=== PATIENT | female | born 1980 | race Caucasian/White ===

== ENCOUNTER 2017-05-13 09:38 | Emergency (ER) | payer OTHER ==
[~2017-05-13] VITALS: Ht 165.1 cm; Wt 56.7 kg
[~2017-05-13 09:38] MED LIST: CYMBALTA30 MG PO; LEVOTHYROXINE25 MCG PO; MULTIVITAMINS1 EAC7 PO; PERCOCET 7.5-31 EACH PO; PHENADOZ25 MG PR; PRENATAL MULTI1 EACH PO; PROCARDIA XL60 MG PO
[2017-05-13] MEDS ORDERED: SUDOGEST60 MG PO (09:53)
--- NOTE | 2017-05-13 22:35 | EKG ---
[facility] [address] [facility] [place], [place] [address] Signed Sinus bradycardia Possible Left atrial enlargement Anterior infarct , age undetermined Abnormal ECG No previous ECGs available Confirmed by TORRIE HOUGH MD ([id number]) on 05/13/2017 10:35:31 PM Electronically Signed By: TORRIE HOUGH MD 05/13/17 2235 PATIENT NAME: RAQUEL MENDEZ Electrocardiogram DATE OF : 80 PHYSICIAN: TORRIE HOUGH MD REPORT #: [id number] REPORT IS CONFIDENTIAL AND NOT TO BE RELEASED WITHOUT AUTHORIZATION
== END 2017-05-13 11:40 | disposition home or self-care (01) ==
LOC: ED 09:38
DX: R00.2 Palpitations (principal); Z79.899 Other long term (current) drug therapy
CPT/HCPCS: 80053; 84439; 84443; 84484; 85025; 93005; 93010; 99284

== ENCOUNTER 2019-01-13 16:06 | Emergency (ER) | payer OTHER ==
[~2019-01-13] VITALS: Ht 165.1 cm; Wt 61.2 kg
[~2019-01-13 16:06] MED LIST changes: +SUDOGEST60 MG PO
[2019-01-13] MEDS ORDERED: KARIVA 28 DAY1 EACH PO (16:21)
== END 2019-01-13 17:25 | disposition home or self-care (01) ==
LOC: ED 16:06
DX: R10.2 Pelvic and perineal pain (principal); G89.29 Other chronic pain
CPT/HCPCS: 96372; 99283-25; J1885; J2550

== ENCOUNTER 2019-02-14 07:50 | Day surgery (SDC) | payer OTHER ==
[~2019-02-14] VITALS: Ht 165.1 cm; Wt 61.2 kg
[~2019-02-14 07:50] MED LIST changes: +KARIVA 28 DAY1 EACH PO
[2019-02-14] MEDS ORDERED: WELLBUTRIN SR150 MG PO (08:07)
--- NOTE | 2019-02-14 09:23 | NUR ---
02/14/19 0923 Yuridia Payton SN 0916- PT ARRIVES TO PACU. 02 SAT HIGH 90'S ON 1 LITER VIA NC. RESPS EVEN AND UNLABORED. PT RESTING WITH EYES CLOSED. PT VERY DROWSY AT THIS TIME. REMOVED. PT TOLERATING WELL. RESPS EVEN AND UNLABORED. 02 SAT HIGH 90'S ON RA. PT DENIES PAIN, NAUSEA, AND DIZZINESS AT THIS TIME.
--- NOTE | 2019-02-16 10:55 | OR ---
[facility] [address], [place] [address] Signed DATE OF OPERATION: 02/14/2019 SURGEON: Eddie Marte MD DATE OF PROCEDURE: 02/14/2019 PREOPERATIVE DIAGNOSIS: Persistent pelvic pain, episodic diarrhea and constipation. POSTOPERATIVE DIAGNOSIS: Polyp of sigmoid, otherwise normal. PROCEDURE: Total colonoscopy to cecum with hot snare polypectomy x1. ANESTHESIA: Intravenous sedation, fentanyl 200 mcg and Versed 10 mg. INDICATION: This 38-year-old white woman is a patient Dr. Gutierrez and well known to me from the past. She has had a presumptive diagnosis of colitis in the past. She has had persistent pelvic pain and transvaginal ultrasound was normal. She is to undergo colonoscopy to assess for source of colonic pathology that may account for low pelvic pain and if negative, Dr. Gutierrez is anticipating laparoscopy. As regard to colonoscopy, the risks of bleeding, infection, perforation, and so forth were reviewed in detail. She understands and wished to proceed. FINDINGS: The prep was good. Complete colonoscopy was undertaken to the cecum. There was no lesion to account for pelvic pain. She did have a polyp at 20 cm, which was excised with hot snare polypectomy technique. PROCEDURE: The patient was brought to the endoscopy suite and placed in lateral decubitus position, given intravenous sedation to the point of slurred speech and nystagmus. Digital rectal examination was normal. Olympus video colonoscope was passed in the rectum and manipulated throughout the colon ultimately intubating the cecum. The scope was withdrawn from that point. Examination Electronically Signed By: EDDIE MARTE MD 02/16/19 1055 PATIENT NAME: RAQUEL GARDUNO OPERATIVE REPORT DATE OF : 80 REPORT #: [id number] PHYSICIAN: EDDIE MARTE MD PCP: NO PRIMARY CARE PHYSICIAN REPORT IS CONFIDENTIAL AND NOT TO BE RELEASED WITHOUT AUTHORIZATION [facility] [address] [place], [place] [address] Signed throughout undertaken showing no sign of abnormality until approximately 20 cm from the anal verge where a somewhat pedunculated polyp was noted, this was excised with hot snare polypectomy technique. Complete polypectomy was accomplished without problem. Further withdrawal of scope showed no other abnormality. Retroflexed view was normal. The scope was removed. The patient was taken to recovery room in good condition. CONCLUDING DIAGNOSIS: Polyps x1, not accounting for pelvic pain most likely. PLAN: She will return to the ongoing care of Dr. Gutierrez. Consideration will then be made for laparoscopy. MD NAINA Vazquez/ANISA /[id number] cc: Madison Gutierrez MD Copies: MADISON GUTIERREZ MD ~ Electronically Signed By: EDDIE MARTE MD 02/16/19 1055 PATIENT NAME: RAQUEL GARDUNO OPERATIVE REPORT DATE OF : 80 REPORT #: [id number] PHYSICIAN: EDDIE MARTE MD PCP: NO PRIMARY CARE PHYSICIAN REPORT IS CONFIDENTIAL AND NOT TO BE RELEASED WITHOUT AUTHORIZATION
== END 2019-02-14 10:05 | disposition home or self-care (01) ==
LOC: DS 07:50 → OPS 07:50 → DS 08:30 → OPS 10:05
PROVIDERS: Surgery
PROC: 0DBE8ZX Excision of Large Intestine, Via Natural or Artificial Opening Endoscopic, Diagnostic (ICD-10-PCS; principal; 2019-02-14 08:30)
DX: K51.40 Inflammatory polyps of colon without complications (principal); J45.909 Unspecified asthma, uncomplicated; Z79.899 Other long term (current) drug therapy; Z87.442 Personal history of urinary calculi
CPT/HCPCS: 84703; 99153; G0500; J2250; J3010; J7120

== ENCOUNTER 2019-10-12 09:15 | Day surgery (SDC) | payer OTHER ==
[~2019-10-12] VITALS: Ht 167.6 cm; Wt 68.0 kg
--- NOTE | ~2019-10-12 | OR ---
[facility] [address] [place], [place] [address] Draft DATE OF OPERATION: 10/12/2019 SURGEON: Madison Gutierrez MD PREOPERATIVE DIAGNOSES: Pelvic pain and menorrhagia. POSTOPERATIVE DIAGNOSES: Pelvic pain, menorrhagia, mild pelvic endometriosis. PROCEDURES: Laparoscopy with fulguration of endometriosis with cautery, NovaSure endometrial ablation. ANESTHESIA: General ET. ESTIMATED BLOOD LOSS: Minimal. DRAINS: None. INDICATIONS AND FINDINGS: The patient is a 39-year-old female, 5, para 3-0-0-5, who has been having very heavy periods as well as increasing pelvic pain. She had tried control pills without relief. At the time of surgery, exam under anesthesia was normal. At the time of laparoscopy, she had mild pelvic endometriosis in the cul-de-sac only. The tubes and ovaries were normal. She had some mild scarring from her prior C-sections. DESCRIPTION OF PROCEDURE: The patient was prepped and draped in the dorsal lithotomy position. A weighted speculum was placed. The anterior lip of the cervix was visualized and grasped with a single-tooth tenaculum. The cavity was sounded to a total of 9.5 cm with a 4.5 cm cervix length. Hulka clamp was then placed and attention was then directed above after removal of the speculum and the tenaculum. Attention was directed to the abdomen and the infraumbilical area was injected with 0.5% Marcaine plain. The incision was made with a knife, and each layer was serially elevated and incised until the fascia was opened and identified. This was a little difficult as she had a prior umbilical hernia repair. Stay sutures were placed on the fascia. The peritoneum was opened bluntly. PATIENT NAME: RAQUEL GARDUNO OPERATIVE REPORT DATE OF : 80 REPORT #: [id number] PHYSICIAN: MADISON GUTIERREZ MD PCP: ALEX SANCHEZ PA-C REPORT IS CONFIDENTIAL AND NOT TO BE RELEASED WITHOUT AUTHORIZATION [facility] [address] [place], [place] [address] Draft The Martin cannula was then placed and the balloon inflated. Placement of the scope confirmed proper positioning. CO2 was then introduced into the abdomen. The pelvis could not be completely visualized and the 2nd port was placed in the left lower quadrant. This was slightly below the level of the umbilicus and lateral. This area was transilluminated and injected with Marcaine. Incision was made with a knife and this trocar placed under direct vision. Following this, the pelvis was visualized and the endometriosis was seen. It was felt that another port would be needed for this. A 3rd port was placed on the right side in the same area slightly below the umbilicus and lateral. Again, this area was transilluminated, injected with the Marcaine, incision made with a knife, and this trocar placed under direct vision. Following this, a spatula tip cautery was used to cauterize the endometriosis in the cul-de-sac. Following this, the pelvis was irrigated and there was no evidence of other endometriosis. Procedure was terminated with removal of the instruments after allowing as much CO2 as possible to escape. The fascial incision was reidentified and closed with a running suture of 0 Vicryl. The stay sutures were tied across as well. The skin incisions were closed with subcuticular sutures of 3-0 Vicryl Rapide. Attention was directed down below and the Hulka clamp removed and the tenaculum replaced. The cervix was slightly dilated to allow for placement of the NovaSure. The length was 5 cm for the length of the fundus. The NovaSure was opened and width of 4.1 cm was found. The integrity test was done and passed. The cycle was begun and the ablation was complete in 1 minute and 37 seconds. The instruments were removed from the vagina after conclusion of this. The NovaSure was brought back into the sheath prior to removal. The patient tolerated the procedure well and was taken to the recovery room in good condition. All sponge and needle counts were correct. Madison Gutierrez MD PJW/MODL /[id number] Copies: ~ PATIENT NAME: RAQUEL GARDUNO OPERATIVE REPORT DATE OF : 80 REPORT #: [id number] PHYSICIAN: MADISON GUTIERREZ MD PCP: ALEX SANCHEZ PA-C REPORT IS CONFIDENTIAL AND NOT TO BE RELEASED WITHOUT AUTHORIZATION
[~2019-10-12 09:15] MED LIST changes: +PROAIR RESPICL90 MCG INH; +WELLBUTRIN SR150 MG PO
--- NOTE | 2019-10-12 14:15 | NUR ---
10/12/19 1415 Sheets,Mikayla 1409 PT ARRIVED TO PACU ON 6L VIA MASK, ORAL AIRWAY IN PLACE. RESP EVEN AND UNLABORED. VSS. THREE LAP SITES TO ABD.
--- NOTE | 2019-10-12 14:44 | NUR ---
PT IS BACK TO DS FROM PACU. SISTER IS AT THE BEDSIDE. CALL LIGHT WITHIN REACH. NO ADDITIONAL NEEDS AT THIS TIME.
--- NOTE | 2019-10-12 15:32 | NUR ---
LE 1510: PT REQUESTING CLIFF AND JANIA.
--- NOTE | 2019-10-12 16:33 | NUR ---
PT REPORTING PAIN STILL AT 7/10. GIVEN SECOND PAIN PILL. SISTER AT BEDSIDE. CALL LIGHT WITHIN REACH. NO ADDITIONAL NEEDS.
--- NOTE | 2019-10-12 17:17 | NUR ---
PT AND SISTER ARE GIVEN VERBAL DC INSTRUCTIONS. PT VERBALIZES UNDERSTANDING. QUESTIONS ARE ANSWERED. PT IS TAKEN TO CAR VIA WC BY LIZZY URIBE.
== END 2019-10-12 17:15 | disposition home or self-care (01) ==
LOC: DS 09:15
PROVIDERS: Obstetrics & Gynecology
PROC: 0U5F4ZZ Destruction of Cul-de-sac, Percutaneous Endoscopic Approach (ICD-10-PCS; principal; 2019-10-12 12:00)
DX: N80.3 Endometriosis of pelvic peritoneum (principal); N92.0 Excessive and frequent menstruation with regular cycle; K51.90 Ulcerative colitis, unspecified, without complications; G43.909 Migraine, unspecified, not intractable, without status migrainosus; J45.20 Mild intermittent asthma, uncomplicated; F32.9 Major depressive disorder, single episode, unspecified; Z79.899 Other long term (current) drug therapy
CPT/HCPCS: J0131; J0690; J1100; J1644; J1885; J2250; J2704; J2765; J3010; J7121

== ENCOUNTER 2020-02-13 14:41 | Emergency (ER) | payer OTHER ==
[~2020-02-13] VITALS: Ht 167.6 cm; Wt 68.0 kg
[2020-02-13] MEDS ORDERED: ONDANSETRON ODT8 MG PO (14:59)
== END 2020-02-13 17:22 | disposition home or self-care (01) ==
LOC: ED 14:41
DX: R11.0 Nausea (principal); R68.89 Other general symptoms and signs; F32.9 Major depressive disorder, single episode, unspecified; Z79.899 Other long term (current) drug therapy
CPT/HCPCS: 80053; 81001; 84703; 85025; 96361; 96374; 99283-25; G0480; J2765; J7030

== ENCOUNTER 2021-08-31 13:37 | Emergency (ER) | payer OTHER ==
[~2021-08-31] VITALS: Ht 167.6 cm; Wt 64.0 kg
[~2021-08-31 13:37] MED LIST changes: +ONDANSETRON ODT8 MG PO
[2021-08-31] MEDS ORDERED: ZITHROMAX250 MG PO (16:04)
[2021-08-31] MEDS ORDERED: PREDNISONE20 MG PO (16:04)
== END 2021-08-31 16:30 | disposition home or self-care (01) ==
LOC: ED 13:37
DX: J40 Bronchitis, not specified as acute or chronic (principal); Z20.822 Contact with and (suspected) exposure to COVID-19
CPT/HCPCS: 71045; 99285-25; C9803; U0003

== ENCOUNTER 2022-06-20 15:15 | Emergency (ER) | payer OTHER ==
[~2022-06-20] VITALS: Ht 167.6 cm; Wt 63.5 kg
[~2022-06-20 15:15] MED LIST changes: +PREDNISONE20 MG PO; +ZITHROMAX250 MG PO
[2022-06-20] MEDS ORDERED: ONE DAILY WOME1 EACH PO (15:39)
[2022-06-20] MEDS ORDERED: HYDROCODON-ACE1 EA10 PO (19:29)
== END 2022-06-20 19:53 | disposition home or self-care (01) ==
LOC: ED 15:15
DX: N83.201 Unspecified ovarian cyst, right side (principal)
CPT/HCPCS: 36415; 74177; 80053; 83690; 84703; 85025; 85060; A9270; J1170; J2405; Q9967

== ENCOUNTER 2023-05-08 18:50 | Emergency (ER) | payer OTHER ==
[~2023-05-08] VITALS: Ht 167.6 cm; Wt 68.5 kg
--- OUTSIDE RECORDS SUMMARY | ~2023-05-08 | XMS | Continuity of Care Document ---
Demographics + + + | Address | [address] | | | [place] [address] | + + + | Preferred Language | Unknown | + + + | Marital Status | | + + + | Advent Affiliation | Unknown | + + + | Race | White | + + + | Ethnic Group | Not or | + + + Author + + + | Author | [facility] | + + + | Organization | [facility] | + + + | Address | [address] | | | [place] [address] | + + + | Phone | | + + + Care Team Providers + + + + | Care Seamless Tube Mill Operator Name | Role | Phone | + + + + Unavailable | Unavailable | + + + + Unavailable | Unavailable | + + + + Allergies No information. Encounters No information. Functional Status No information. Immunizations No information. Medications + + + + | date | description | facility | + + + + | 2022-06-20 00:00 | PSEUDOEPHEDRINE HCL | [facility] | + + + + | 2022-06-20 00:00 | OXYCODONE | [facility] | | | HCL/ACETAMINOPHEN | | + + + + | 2022-06-20 00:00 | NIFEdipine | [facility] | + + + + | 2022-06-20 00:00 | ONDANSETRON | [facility] | + + + + | 2022-06-20 00:00 | DULOXETINE HCL | [facility] | + + + + | 2022-06-20 00:00 | HYDROCODONE | [facility] | | | BIT/ACETAMINOPHEN | | + + + + | 2022-06-20 00:00 | PROMETHAZINE HCL | [facility] | + + + + | 2022-06-20 00:00 | buPROPion HCL | [facility] | + + + + Problems + + + + | date | description | facility | + + + + | 2014-09-28 00:00 | Injury of head | [facility] | + + + + | 2014-10-20 00:00 | Pain of left calf | [facility] | + + + + | 2017-05-13 00:00 | Palpitations | [facility] | + + + + | 2019-01-13 00:00 | Chronic pelvic pain in | [facility] | | | female | | + + + + | 2020-02-13 00:00 | Nausea | [facility] | + + + + | 2020-02-13 00:00 | Rigors | [facility] | + + + + | 2021-08-31 00:00 | Bronchitis | [facility] | + + + + | 2022-05-21 15:34 | PAIN IN LEFT LEG | [facility] | + + + + | 2022-05-21 15:34 | PAIN IN LEFT LOWER LEG | [facility] | + + + + | 2022-06-20 00:00 | Cyst of ovary | [facility] | + + + + | 2022-06-20 15:15 | UNSPECIFIED OVARIAN CYST, | [facility] | | | RIGHT SIDE | | + + + + | 2022-06-20 15:15 | LEFT LOWER QUADRANT PAIN | [facility] | + + + + | 2022-07-01 09:06 | UNSPECIFIED OVARIAN CYST, | [facility] | | | RIGHT SIDE | | + + + + | 2022-07-01 09:06 | PELVIC AND PERINEAL PAIN | [facility] | + + + + Procedures No information. Results/Labs +--------+--------+ +---------+--------+---------+ | test | date | facility | value | unit | notes | +--------+--------+ +---------+--------+---------+ + + | Result panel 1 | + + + + + +-------+ + + | | 2022-06-20 | [facility] | 7.5 | (missing) | (missing) | | (unavailable | 15:48 | [facility] | | | | + + + +-------+ + + + + | Result panel 2 | + + + + + +-------+ + + | | 2022-06-20 | [facility] | 205 | (missing) | (missing) | | (unavailable | 15:48 | [facility] | | | | + + + +-------+ + + + + | Result panel 3 | + + + + + +--------+ + + | | 2022-06-20 | [facility] | 72.3 | (missing) | (missing) | | (unavailable | 15:48 | [facility] | | | | + + + +--------+ + + + + | Result panel 4 | + + + + + +--------+ + + | | 2022-06-20 | [facility] | 18.8 | (missing) | (missing) | | (unavailable | 15:48 | [facility] | | | | + + + +--------+ + + + + | Result panel 5 | + + + + + +-------+ + + | | 2022-06-20 | [facility] | 6.5 | (missing) | (missing) | | (unavailable | 15:48 | [facility] | | | | + + + +-------+ + + + + | Result panel 6 | + + + + + +-------+ + + | | 2022-06-20 | [facility] | 1.2 | (missing) | (missing) | | (unavailable | 15:48 | [facility] | | | | + + + +-------+ + + + + | Result panel 7 | + + + + + +-------+ + + | | 2022-06-20 | [facility] | 1.2 | (missing) | (missing) | | (unavailable | 15:48 | [facility] | | | | + + + +-------+ + + + + | Result panel 8 | + + + + + +------+---------+ + | | 2022-06-20 | [facility] | 89 | mg/dL | (missing) | | (unavailable | 15:48 | [facility] | | | | + + + +------+---------+ + + + | Result panel 9 | + + + + + +-----+---------+ + | | 2022-06-20 | [facility] | 5 | mg/dL | (missing) | | (unavailable | 15:48 | [facility] | | | | + + + +-----+---------+ + + + | Result panel 10 | + + + + + +--------+---------+ + | | 2022-06-20 | [facility] | 0.52 | mg/dL | (missing) | | (unavailable | 15:48 | [facility] | | | | + + + +--------+---------+ + + + | Result panel 11 | + + + + + +-------+ + + | | 2022-06-20 | [facility] | 119 | (missing) | (missing) | | (unavailable | 15:48 | [facility] | | | | + + + +-------+ + + + + | Result panel 12 | + + + + + + + + + | | 2022-06-20 | [facility] | SEE COMMENT | (missing) | (missing) | | (unavailable | 15:48 | [facility] | | | | + + + + + + + + + | Result panel 13 | + + + + + +--------+ + + | | 2022-06-20 | [facility] | 9.61 | (missing) | (missing) | | (unavailable | 15:48 | [facility] | | | | + + + +--------+ + + + + | Result panel 14 | + + + + + +-------+ + + | | 2022-06-20 | [facility] | 139 | (missing) | (missing) | | (unavailable | 15:48 | [facility] | | | | + + + +-------+ + + + + | Result panel 15 | + + + + + +-------+ + + | | 2022-06-20 | [facility] | 3.8 | (missing) | (missing) | | (unavailable | 15:48 | [facility] | | | | + + + +-------+ + + + + | Result panel 16 | + + + + + +-------+ + + | | 2022-06-20 | [facility] | 100 | (missing) | (missing) | | (unavailable | 15:48 | [facility] | | | | + + + +-------+ + + + + | Result panel 17 | + + + + + +------+ + + | | 2022-06-20 | [facility] | 27 | (missing) | (missing) | | (unavailable | 15:48 | [facility] | | | | + + + +------+ + + + + | Result panel 18 | + + + + + +--------+ + + | | 2022-06-20 | [facility] | 15.8 | (missing) | (missing) | | (unavailable | 15:48 | [facility] | | | | + + + +--------+ + + + + | Result panel 19 | + + + + + +-------+---------+ + | | 2022-06-20 | [facility] | 9.2 | mg/dL | (missing) | | (unavailable | 15:48 | [facility] | | | | + + + +-------+---------+ + + + | Result panel 20 | + + + + + +-------+ + + | | 2022-06-20 | [facility] | 7.5 | (missing) | (missing) | | (unavailable | 15:48 | [facility] | | | | + + + +-------+ + + + + | Result panel 21 | + + + + + +-------+ + + | | 2022-06-20 | [facility] | 3.7 | (missing) | (missing) | | (unavailable | 15:48 | [facility] | | | | + + + +-------+ + + + + | Result panel 22 | + + + + + +-------+ + + | | 2022-06-20 | [facility] | 3.8 | (missing) | (missing) | | (unavailable | 15:48 | [facility] | | | | + + + +-------+ + + + + | Result panel 23 | + + + + + +--------+ + + | | 2022-06-20 | [facility] | 3.53 | (missing) | (missing) | | (unavailable | 15:48 | [facility] | | | | + + + +--------+ + + + + | Result panel 24 | + + + + + +--------+ + + | | 2022-06-20 | [facility] | 0.97 | (missing) | (missing) | | (unavailable | 15:48 | [facility] | | | | + + + +--------+ + + + + | Result panel 25 | + + + + + +-------+ + + | | 2022-06-20 | [facility] | 0.6 | (missing) | (missing) | | (unavailable | 15:48 | [facility] | | | | + + + +-------+ + + + + | Result panel 26 | + + + + + +-------+ + + | | 2022-06-20 | [facility] | 210 | (missing) | (missing) | | (unavailable | 15:48 | [facility] | | | | + + + +-------+ + + + + | Result panel 27 | + + + + + +------+ + + | | 2022-06-20 | [facility] | 64 | (missing) | (missing) | | (unavailable | 15:48 | [facility] | | | | + + + +------+ + + + + | Result panel 28 | + + + + + +-------+ + + | | 2022-06-20 | [facility] | 156 | (missing) | (missing) | | (unavailable | 15:48 | [facility] | | | | + + + +-------+ + + + + | Result panel 29 | + + + + + +-------+ + + | | 2022-06-20 | [facility] | 101 | (missing) | (missing) | | (unavailable | 15:48 | [facility] | | | | + + + +-------+ + + + + | Result panel 30 | + + + + + + + + + | | 2022-06-20 | [facility] | NEGATIVE | (missing) | (missing) | | (unavailable | 15:48 | [facility] | | | | + + + + + + + + + | Result panel 31 | + + + + + +--------+ + + | | 2022-06-20 | [facility] | 12.8 | (missing) | (missing) | | (unavailable | 15:48 | [facility] | | | | + + + +--------+ + + + + | Result panel 32 | + + + + + +--------+ + + | | 2022-06-20 | [facility] | 37.9 | (missing) | (missing) | | (unavailable | 15:48 [facility] | | | | + + + +--------+ + + + + | Result panel 33 | + + + + + +---------+ + + | | 2022-06-20 | [facility] | 107.3 | (missing) | (missing) | | (unavailable | 15:48 | [facility] | | | | + + + +---------+ + + + + | Result panel 34 | + + + + + +--------+ + + | | 2022-06-20 | [facility] | 36.4 | (missing) | (missing) | | (unavailable | 15:48 | [facility] | | | | + + + +--------+ + + + + | Result panel 35 | + + + + + +--------+ + + | | 2022-06-20 | [facility] | 33.9 | (missing) | (missing) | | (unavailable | 15:48 | [facility] | | | | + + + +--------+ + + + + | Result panel 36 | + + + + + +--------+ + + | | 2022-06-20 | [facility] | 13.6 | (missing) | (missing) | | (unavailable | 15:48 | [facility] | | | | + + + +--------+ + + Social History No information. Vital Signs + + + +---------+ | date | measurement | value | units | + + + +---------+ | 2022-06-20 00:00 | BMI | 22.6 | kg/m2 | + + + +---------+ | 2022-06-20 00:00 | BP_diastolic | 93 | mmHg | + + + +---------+ | 2022-06-20 00:00 | BP_systolic | 126 | mmHg | + + + +---------+ | 2022-06-20 00:00 | heart_rate | 81 | /min | + + + +---------+ | 2022-06-20 00:00 | height_metric | 167.64 | cm | + + + +---------+ | 2022-06-20 00:00 | height_standard | 66 | in | + + + +---------+ | 2022-06-20 00:00 | o2_saturation | 98 | % | + + + +---------+ | 2022-06-20 00:00 | respiration_rate | 23 | /min | + + + +---------+ | 2022-06-20 00:00 | temperature_metric | 36.94 | C | | | | | | + + + +---------+ | 2022-06-20 00:00 | | 98.5 | F | | | temperature_standar | | | | | d | | | + + + +---------+ | 2022-06-20 00:00 | weight_metric | 63.5 | kg | + + + +---------+ | 2022-06-20 00:00 | weight_standard | 139.99 | lb | + + + +---------+"
--- OUTSIDE RECORDS SUMMARY | ~2023-05-08 | XMS | Continuity of Care Document ---
Demographics + + + | Address | [address] | | | [place] [address] | + + + | Preferred Language | Unknown | + + + | Marital Status | | + + + | Sabianist Affiliation | Unknown | + + + | Race | White | + + + | Ethnic Group | Not or | + + + Author + + + | Author | [facility] | + + + | Organization | [facility] | + + + | Address | [address] | | | [place] [address] | + + + | Phone | | + + + Care Team Providers + + + + | Care Overhead Crane Operator Name | Role | Phone | + + + + Unavailable | Unavailable | + + + + Unavailable | Unavailable | + + + + Allergies No information. Encounters No information. Functional Status No information. Immunizations No information. Medications + + + + | date | description | facility | + + + + | 2022-06-20 00:00 | PSEUDOEPHEDRINE HCL | [facility] | + + + + | 2022-06-20 00:00 | OXYCODONE | [facility] | | | HCL/ACETAMINOPHEN | | + + + + | 2022-06-20 00:00 | NIFEdipine | [facility] | + + + + | 2022-06-20 00:00 | ONDANSETRON | [facility] | + + + + | 2022-06-20 00:00 | DULOXETINE HCL | [facility] | + + + + | 2022-06-20 00:00 | HYDROCODONE | [facility] | | | BIT/ACETAMINOPHEN | | + + + + | 2022-06-20 00:00 | PROMETHAZINE HCL | [facility] | + + + + | 2022-06-20 00:00 | buPROPion HCL | [facility] | + + + + Problems + + + + | date | description | facility | + + + + | 2014-09-28 00:00 | Injury of head | [facility] | + + + + | 2014-10-20 00:00 | Pain of left calf | [facility] | + + + + | 2017-05-13 00:00 | Palpitations | [facility] | + + + + | 2019-01-13 00:00 | Chronic pelvic pain in | [facility] | | | female | | + + + + | 2020-02-13 00:00 | Nausea | [facility] | + + + + | 2020-02-13 00:00 | Rigors | [facility] | + + + + | 2021-08-31 00:00 | Bronchitis | [facility] | + + + + | 2022-05-21 15:34 | PAIN IN LEFT LEG | [facility] | + + + + | 2022-05-21 15:34 | PAIN IN LEFT LOWER LEG | [facility] | + + + + | 2022-06-20 00:00 | Cyst of ovary | [facility] | + + + + | [...]
[~2023-05-08 18:50] MED LIST changes: +HYDROCODON-ACE1 EA10 PO; +ONE DAILY WOME1 EACH PO
[2023-05-08 21:15] VITALS: BP 131/84
== END 2023-05-08 21:16 | disposition home or self-care (01) ==
LOC: ED 18:50
DX: S00.12XA Contusion of left eyelid and periocular area, initial encounter (principal); W21.03XA Struck by baseball, initial encounter
CPT/HCPCS: 70450; 70486; 72125; 90715; A9270

== ENCOUNTER 2023-08-20 16:25 | Emergency (ER) | payer OTHER ==
[~2023-08-20] VITALS: Ht 167.6 cm; Wt 68.5 kg
[2023-08-20] MEDS ORDERED: WELLBUTRIN SR150 MG PO (16:32)
[2023-08-20] MEDS ORDERED: ATIVAN1 MG PO (18:34)
[2023-08-20 19:48] LABS: AMPHETAMINES, URINE NEGATIVE (NEGATIVE); BARBITURATES, URINE NEGATIVE (NEGATIVE); BENZODIAZEPINE, URINE NEGATIVE (NEGATIVE); BUPRENORPHINE, URINE NEGATIVE (NEGATIVE); COCAINE, URINE NEGATIVE (NEGATIVE); ECSTASY, URINE NEGATIVE (NEGATIVE); OXYCODONE, URINE NEGATIVE (NEGATIVE)
[2023-08-20 19:49] LABS: CANNABINOID, URINE NEGATIVE (NEGATIVE); OPIATES, URINE NEGATIVE (NEGATIVE); PHENCYCLIDINE, URINE NEGATIVE (NEGATIVE)
[2023-08-20 19:50] LABS: FENTANYL, URINE NEGATIVE (NEGATIVE)
[2023-08-20 19:56] VITALS: BP 125/91
== END 2023-08-20 19:56 | disposition home or self-care (01) ==
LOC: ED 16:25
PROVIDERS: Emergency Medicine
DX: F15.929 Other stimulant use, unspecified with intoxication, unspecified (principal)
CPT/HCPCS: 80307; 99284; A9270-GY

== ENCOUNTER 2024-01-14 09:54 | Emergency (ER) | payer OTHER ==
[~2024-01-14] VITALS: Ht 167.6 cm; Wt 77.0 kg
[~2024-01-14 09:54] MED LIST changes: +ATIVAN1 MG PO
[2024-01-14 10:15] LABS: BASOPHILS 1.1 % (0-2); EOSINOPHILS 1.8 % (0-6); HEMATOCRIT 39.2 % (35.0-50.0); HEMOGLOBIN 13.4 g/dL (12.0-18.0); MCH 35.7 (27-36); MCHC 34.1 g/dl (30-36); MCV 104.7 fl (81-99); MONOCYTES 10.6 % (0-12); NEUTROPHILS 63.5 % (39-80); PLATELET COUNT 99 K/uL (140-440); RBC 3.74 M/ul (4.3-5.7); RDW 12.6 (10.5-15.0)
[2024-01-14] MEDS ORDERED: LORazepam 2 MG/ML VIAL IV ONE (10:15)
[2024-01-14 10:39] LABS: BILIRUBIN, URINE POSITIVE (negative); BLOOD/HGB, URINE NEGATIVE (Negative); KETONE, URINE TRACE (Negative); LEUK ESTERASE, URINE MODERATE (negative); NITRITE, URINE NEGATIVE (negative); PH, URINE 5.5 (5-7)
[2024-01-14 10:40] LABS: ALBUMIN 4.2 g/dL (3.4-5.0); ALBUMIN/GLOBULIN RATIO 1.05 (1.1-2.4); ALKALINE PHOSPHATASE 169 U/L (46-116); ALT (SGPT) 104 U/L (14-59); AST (SGOT) 175 U/L (15-37); BILIRUBIN, TOTAL 1.3 ng/dL (0.2-1.0); BUN/CREATININE RATIO 9.85 (6.0-28.6); CALCIUM 9.1 mg/dL (8.5-10.1); CARBON DIOXIDE 24 mmol/L (21-32); CHLORIDE 95 mmol/L (98-107); CREATININE, SERUM 0.71 mg/dL (0.55-1.02); GLOMERULAR FILTRATION RATE,EST 108 mL/min (>60); PROTEIN, TOTAL 8.2 g/dL (6.4-8.2); TSH, 3RD GENERATION 4.857 uIU/mL (0.358-3.740); UREA NITROGEN 7 mg/dL (7-18)
[2024-01-14 10:55] LABS: RED BLOOD CELLS, URINE 0-1 /hpf (0-5)
[2024-01-14 10:56] LABS: BACTERIA, URINE 3+ /hpf (negative); CASTS, URINE NONE SEEN \\lpf; COLLECTION TYPE, URINE CLEAN CATCH; CRYSTALS, URINE NONE SEEN (0-1+); EPITHELIAL CELLS, URINE 0 /lpf (0-1+); REFLEX CULTURE, URINE Yes (No)
[2024-01-14 11:00] LABS: AMPHETAMINES, URINE POSITIVE (NEGATIVE); BARBITURATES, URINE NEGATIVE (NEGATIVE); BENZODIAZEPINE, URINE NEGATIVE (NEGATIVE); BUPRENORPHINE, URINE NEGATIVE (NEGATIVE); CANNABINOID, URINE NEGATIVE (NEGATIVE); COCAINE, URINE NEGATIVE (NEGATIVE); ECSTASY, URINE POSITIVE (NEGATIVE); FENTANYL, URINE NEGATIVE (NEGATIVE); METHADONE, URINE NEGATIVE (NEGATIVE); OPIATES, URINE NEGATIVE (NEGATIVE); OXYCODONE, URINE NEGATIVE (NEGATIVE); PHENCYCLIDINE, URINE NEGATIVE (NEGATIVE)
[2024-01-14] MEDS ORDERED: POTASSIUM CHLORIDE 10 MEQ TABCR PO ONE (11:15)
[2024-01-14] MEDS ORDERED: MACROBID 100 M100 MG PO (11:18)
[2024-01-14] MEDS ORDERED: K-TAB ER20 MEQ PO (11:18)
[2024-01-14] MEDS ORDERED: MULTI VITAMIN1 EACH PO (11:18)
[2024-01-14 11:33] VITALS: BP 135/95
--- NOTE | 2024-01-15 15:02 | EKG ---
[facility] [address] [place] [address] Signed Normal sinus rhythm Biatrial enlargement Cannot rule out Anterior infarct , age undetermined Abnormal ECG Confirmed by JALEN BEDOLLA MD ([id number]) on 01/15/2024 3:01:50 PM Electronically Signed By: JALEN BEDOLLA 01/15/24 1502 PATIENT NAME: CRISTÓBAL GARDUNON ДМИТРИЙ Electrocardiogram DATE OF : 80 PHYSICIAN: JALEN BEDOLLA REPORT #: [id number] REPORT IS CONFIDENTIAL AND NOT TO BE RELEASED WITHOUT AUTHORIZATION
== END 2024-01-14 11:33 | disposition home or self-care (01) ==
LOC: ED 09:54
PROVIDERS: Internal Medicine
DX: F41.9 Anxiety disorder, unspecified (principal); N39.0 Urinary tract infection, site not specified; Z79.899 Other long term (current) drug therapy
CPT/HCPCS: 36415; 80053; 80307; 81001; 83735; 84443; 84484; 84703; 85025; 85379; 87077; 87088; 87186; 93005; 93010; 96374; 99284-25; A9270; J2060